=== PATIENT | male | born 2000 | race Caucasian/White ===

== ENCOUNTER 2025-04-24 14:36 | Emergency (ER) | payer OTHER, SELFPAY ==
--- NOTE | ~2025-04-24 | XR_ITS ---
EXAMINATION: XR chest 2V DATE: 04/24/2025 18:05 INDICATION: Electrical shock TECHNIQUE: Frontal and lateral views of the chest were obtained. COMPARISON: None. FINDINGS: The heart size is normal. Lungs are clear of acute processes. IMPRESSION: 1. No acute findings. Reviewed, dictated and finalized at location T. INAL SUPERINTENDENT IMPRESSION: 1. No acute findings.
--- NOTE | 2025-04-24 14:40 | ECG_ITS ---
Test Date: 2025-04-24 14:47:52 Measurements Intervals [place] Rate: 71 P: 58 IA: 135 QRS: 78 QRSD: 93 T: 71 QT: 378 QTc: 411 Interpretive Statements SINUS RHYTHM WITH SINUS ARRHYTHMIA No previous ECG available for comparison Electronically Signed On 04-24-2025 14:51:24 TILE DECORATOR by Juan C Arizmendi M.D.
[2025-04-24 14:42] VITALS: BP 113/67; PULSE 71; RESP 18; TEMP 36.9; O2SAT 98
--- NOTE | 2025-04-24 17:40 | ED_ITS ---
HPI - Chest Pain General Chief Complaint: Chest Pain <Wendy Hutchinson PA-C - Last Filed: 04/24/25 17:48> Stated Complaint: electrocuted at work from an outlet <Wendy Hutchinson PA-C - Last Filed: 04/24/25 17:48> Time Seen by Provider: 04/24/25 17:41 <TIFFANIE Harper Last Filed: 04/24/25 17:48> Focused HPI: Patient is a 24 y/o male who presents to the ED with concern for electric shock. Patient reports he was at work this morning around 9am and plugging in a 240V outlet when he accidentally touched one of the prongs and sustained a shock. States he felt a jolt/shock from his L hand, through his L arm, across his chest, down his R arm, and out his R hand. Patient reports he feels ok currently. Reports slight chest heaviness, slight soreness in L shoulder. Denies burn mills, palpitations, numbness. GENERAL: Well-appearing, well-nourished, and in no acute distress. HEAD: Normocephalic, atraumatic. CHEST: Clear to auscultation. ?No respiratory distress. HEART: Regular rate and rhythm.? NEURO: ?Alert and oriented x3. Patient screened in triage and initial orders placed.? ?Additional care and disposition to be based upon?diagnostic testing and treatment. <Wendy Hutchinson PA-C - Last Filed: 04/24/25 17:48> Source: patient <Wendy Hutchinson PA-C - Last Filed: 04/24/25 17:48> Mode of arrival: ambulatory <Wendy Hutchinson PA-C - Last Filed: 04/24/25 17:48> Limitations: no limitations <TIFFANIE Harper Last Filed: 04/24/25 17:48> Review of Systems 2 Review of Systems: As reviewed above in HPI <Roman Skinner MD - Last Filed: 04/25/25 05:56> Exam 2 Narrative: GENERAL: [Well-appearing, well-nourished, and in no acute distress.] HEAD: [Normocephalic, atraumatic.] EYES: [PERRLA and EOMI.] ENT: Nares clear, no rhinorrhea or epistaxis. Mucous membranes moist. NECK: Supple. CHEST: [Clear to auscultation. No respiratory distress.] HEART: [Regular rate and rhythm]. No murmur heard. [Normal peripheral pulses.] ABDOMEN: [Soft, nondistended], [nontender], [No rigidity or guarding] EXTREMITIES: Normal range of motion. [No edema.] SKIN: Warm, dry, no rash. NEURO: [No focal deficits]. Alert and oriented [x3.] PSYCH: [Normal mood and affect.] <Roman Skinner MD - Last Filed: 04/25/25 05:56> Course Vital Signs Vital signs: Vital Signs Temperature 36.9 C 04/24/25 14:42 Pulse Rate 71 04/24/25 14:42 Respiratory Rate 18 04/24/25 14:42 Blood Pressure 113/67 04/24/25 14:42 Pulse Oximetry 98 04/24/25 14:42 Oxygen Delivery Room Air 04/24/25 14:42 Temperature 36.6 C 04/24/25 19:33 Pulse Rate 69 04/24/25 21:53 Respiratory Rate 14 04/24/25 21:53 Blood Pressure 117/68 04/24/25 21:53 Pulse Oximetry 100 04/24/25 21:53 Oxygen Delivery Room Air 04/24/25 19:57 <Wendy Hutchinson PA-C - Last Filed: 04/24/25 17:48> Vital Signs Temperature 36.9 C 04/24/25 14:42 Pulse Rate 71 04/24/25 14:42 Respiratory Rate 18 04/24/25 14:42 Blood Pressure 113/67 04/24/25 14:42 Pulse Oximetry 98 04/24/25 14:42 Oxygen Delivery Room Air 04/24/25 14:42 Temperature 36.6 C 04/24/25 19:33 Pulse Rate 69 04/24/25 21:53 Respiratory Rate 14 04/24/25 21:53 Blood Pressure 117/68 04/24/25 21:53 Pulse Oximetry 100 04/24/25 21:53 Oxygen Delivery Room Air 04/24/25 19:57 <Roman Skinner MD - Last Filed: 04/25/25 05:56> MDM - Chest Pain MDM Narrative Medical decision making narrative: 24 y/o male who presents to the ED with concern for electric shock. Patient reports he was at work this morning around 9am and plugging in a 240V outlet when he accidentally touched one of the prongs and sustained a shock. States he felt a jolt/shock from his L hand, through his L arm, across his chest, down his R arm, and out his R hand. Patient reports he feels ok currently. Reports slight chest heaviness, slight soreness in L shoulder. Denies burn mills, palpitations, numbness. Patient observed here in the ED for several hours in all his symptoms have resolved as well as his laboratory studies EKG chest x-ray CPK and troponin all being unremarkable normal. He has no further concerns and complaints in given the low voltage of his electrocution is deemed safe for discharge home at this time with return precautions. Patient comfortable the plan safe for discharge < Roman Skinner MD - Last Filed: 04/25/25 05:56> Medical Records Data Attestation: I reviewed the patient's medical records. <Roman Skinner MD - Last Filed: 04/25/25 05:56> Lab Data Attestation: I reviewed the patient's lab results. <Roman Skinner MD - Last Filed: 04/25/25 05:56> Result diagrams: 04/24/25 17:45 04/24/25 17:45 <Wendy Hutchinson PA-C - Last Filed: 04/24/25 17:48> Labs: Lab Results 04/24/25 Range/Units 17:45 WBC 8.4 (4.5-10.0) K/mm3 RBC 5.27 (4.6-6.20) M/mm3 Hgb 15.8 (14.0-18.0) g/dL Hct 44.9 (42.0-52.0) % MCV 85.2 (80-100) fl MCH 30.0 (26-34) pg MCHC 35.2 (32-36) g/dl RDW 12.6 (11.5-14.5) % Plt Count 247 (150-375) k/mm3 MPV 9.2 (7.4-10.4) fl Immature Gran % (Auto) 0.2 (0-0.5) % Neut % (Auto) 56.4 (45.5-73.1) % Lymph % (Auto) 32.2 (18.3-44.2) % Terrell % (Auto) 9.4 H (2.6-8.5) % Eos % (Auto) 1.4 (0-4.4) % Baso % (Auto) 0.4 (0.2-1.2) % Lymph # (Auto) 2.70 (0.9-3.2) K/mm3 Terrell # (Auto) 0.8 H (0.1-0.6) K/mm3 Eos # (Auto) 0.1 (0-0.3) K/mm3 Baso # (Auto) 0.0 (0.0-0.1) K/mm3 Abs Immat Gran (auto) 0.02 (0.00-0.031) K/mm3 Absolute Neuts (auto) 4.7 (1.3-6.7) K/mm3 Absolute Nucleated RBC 0.000 (0.0-0.012) K/mm3 Nucleated RBC % 0.0 (0.0-0.2) % PT 13.8 (11.1-14.7) Seconds INR 1.0 APTT 29.6 (22.3-36.8) Seconds Sodium 138 (137-145) mmol/L Potassium 3.8 (3.4-5.0) mmol/L Chloride 105 (98-107) mmol/L Carbon Dioxide 23 (22-30) mmol/L Anion Gap 10 (4-12) mmol/L BUN 23 H (9-20) mg/dL Creatinine 1.01 (0.7-1.3) mg/dL Estim Creat Clear Calc 111 ml/min Estimated GFR > 60 (59 - ) Glucose 92 (65-110) mg/dL Calcium 9.5 (8.4-10.2) mg/dL Magnesium 2.0 (1.6-2.3) mg/dL Total Bilirubin 0.9 (0.2-1.3) mg/dL AST 21 (17-59) U/L ALT 16 (6-50) U/L Alkaline Phosphatase 59 (38-126) U/L Total Creatine Kinase 29 L (55-170) U/L Troponin I < 0.012 (0.000-0.034) ng/mL Total Protein 7.2 (6.3-8.2) g/dL Albumin 4.6 (3.5-5.1) g/dL <Wendy Hutchinson PA-C - Last Filed: 04/24/25 17:48> Lab Results 04/24/25 Range/Units 17:45 WBC 8.4 (4.5-10.0) K/mm3 RBC 5.27 (4.6-6.20) M/mm3 Hgb 15.8 (14.0-18.0) g/dL Hct 44.9 (42.0-52.0) % MCV 85.2 (80-100) fl MCH 30.0 (26-34) pg MCHC 35.2 (32-36) g/dl RDW 12.6 (11.5-14.5) % Plt Count 247 (150-375) k/mm3 MPV 9.2 (7.4-10.4) fl Immature Gran % (Auto) 0.2 (0-0.5) % Neut % (Auto) 56.4 (45.5-73.1) % Lymph % (Auto) 32.2 (18.3-44.2) % Terrell % (Auto) 9.4 H (2.6-8.5) % Eos % (Auto) 1.4 (0-4.4) % Baso % (Auto) 0.4 (0.2-1.2) % Lymph # (Auto) 2.70 (0.9-3.2) K/mm3 Terrell # (Auto) 0.8 H (0.1-0.6) K/mm3 Eos # (Auto) 0.1 (0-0.3) K/mm3 Baso # (Auto) 0.0 (0.0-0.1) K/mm3 Abs Immat Gran (auto) 0.02 (0.00-0.031) K/mm3 Absolute Neuts (auto) 4.7 (1.3-6.7) K/mm3 Absolute Nucleated RBC 0.000 (0.0-0.012) K/mm3 Nucleated RBC % 0.0 (0.0-0.2) % PT 13.8 (11.1-14.7) Seconds INR 1.0 APTT 29.6 (22.3-36.8) Seconds Sodium 138 (137-145) mmol/L Potassium 3.8 (3.4-5.0) mmol/L Chloride 105 (98-107) mmol/L Carbon Dioxide 23 (22-30) mmol/L Anion Gap 10 (4-12) mmol/L BUN 23 H (9-20) mg/dL Creatinine 1.01 (0.7-1.3) mg/dL Estim Creat Clear Calc 111 ml/min Estimated GFR > 60 (59 - ) Glucose 92 (65-110) mg/dL Calcium 9.5 (8.4-10.2) mg/dL Magnesium 2.0 (1.6-2.3) mg/dL Total Bilirubin 0.9 (0.2-1.3) mg/dL AST 21 (17-59) U/L ALT 16 (6-50) U/L Alkaline Phosphatase 59 (38-126) U/L Total Creatine Kinase 29 L (55-170) U/L Troponin I < 0.012 (0.000-0.034) ng/mL Total Protein 7.2 (6.3-8.2) g/dL Albumin 4.6 (3.5-5.1) g/dL <Roman Skinner MD - Last Filed: 04/25/25 05:56> Imaging Data Attestation: I personally reviewed and interpreted this imaging study as follows: < Roman Skinner MD - Last Filed: 04/25/25 05:56> My impression: Impressions Chest X-Ray 04/24/25 18:06 IMPRESSION: 1. No acute findings. <Roman Skinner MD - Last Filed: 04/25/25 05:56> Discharge Plan Discharge Clinical Impression: Electrocution <Wendy Hutchinson PA-C - Last Filed: 04/24/25 17:48> Patient Disposition: Home <Wendy Hutchinson PA-C - Last Filed: 04/24/25 17:48> Condition: Stable <Wendy Hutchinson PA-C - Last Filed: 04/24/25 17:48> Instructions: Antibiotic Form <TIFFANIE Harper Last Filed: 04/24/25 17:48> Additional Instructions: no sustained injuries and all your laboratory studies and imaging were normal. Tylenol and ibuprofen for any pain. Return with any emergent concerns otherwise follow-up with your doctor as needed. <Wendy Hutchinson PA-C - Last Filed: 04/24/25 17:48> Patient Language: Haitian <TIFFANIE Harper Last Filed: 04/24/25 17:48> Follow-up/Referrals: PHYSICIAN NOT ON STAFF,NONSTAFF [Non-Staff] <Wendy Hutchinson PA-C - Last Filed: 04/24/25 17:48> Time of Disposition: 21:43 <Wendy Hutchinson PA-C - Last Filed: 04/24/25 17:48> 21:43 <Roman Skinner MD - Last Filed: 04/25/25 05:56>
[2025-04-24 17:50] LABS: Hematocrit 44.9 % (42.0-52.0); Hemoglobin 15.8 g/dL (14.0-18.0); Immature Granulocyte Percent A 0.2 % (0-0.5); Lymphocytes Absolute Auto 2.70 K/mm3 (0.9-3.2); Mean Corpuscular HGB Conc 35.2 g/dl (32-36); Mean Corpuscular Hemoglobin 30.0 pg (26-34); Mean Corpuscular Volume 85.2 fl (80-100); Nucleated Red Blood Cells Absolute Auto 0.000 K/mm3 (0.0-0.012); Nucleated Red Blood Cells Perc 0.0 % (0.0-0.2); Platelet Count Result 247 k/mm3 (150-375); Red Blood Count 5.27 M/mm3 (4.6-6.20); White Blood Count 8.4 K/mm3 (4.5-10.0)
[2025-04-24 18:03] LABS: Alanine Aminotransferase 16 U/L (6-50); Albumin Level 4.6 g/dL (3.5-5.1); Alkaline Phosphatase 59 U/L (38-126); Anion Gap 10 mmol/L (4-12); Aspartate Amino Transferase 21 U/L (17-59); Bilirubin,Total 0.9 mg/dL (0.2-1.3); Blood Urea Nitrogen 23 mg/dL (9-20); Calcium 9.5 mg/dL (8.4-10.2); Carbon Dioxide 23 mmol/L (22-30); Chloride 105 mmol/L (98-107); Creatine Kinase 29 U/L (55-170); Estimated CRCL calculation 111 ml/min; Estimated Glomerular Filt Rate > 60; Glucose 92 mg/dL (65-110); INR 1.0; Magnesium 2.0 mg/dL (1.6-2.3); Potassium 3.8 mmol/L (3.4-5.0); Prothrombin Time 13.8 Seconds (11.1-14.7); Sodium 138 mmol/L (137-145); Total Protein 7.2 g/dL (6.3-8.2)
[2025-04-24 18:04] LABS: Partial Thromboplastin Time 29.6 Seconds (22.3-36.8)
[2025-04-24 18:14] LABS: Troponin I < 0.012 ng/mL (0.000-0.034)
[2025-04-24 19:33] VITALS: BP 122/65; PULSE 78; TEMP 36.6; O2SAT 97
[2025-04-24 19:49] VITALS: BP 124/78; PULSE 73; RESP 14; O2SAT 100
[2025-04-24 19:57] VITALS: O2SAT 99
--- OUTSIDE RECORDS SUMMARY | 2025-04-24 21:27 | XMS_ITS | Clinical Summary ---
Author Organization [facility] Address [address] [place] [id number] Care Team Providers Care Archives Specialist Name Role Phone Fabrizio Nixon MD Primary Care Provider + Allergies No known active allergies Medications No known medications Active Problems Problem Noted Date Diagnosed Date Tinea pedis of both feet 10/26/2021 Assessment & Plan (10/26/2021 11:07 AM CDT): - topical terbinafine for 1 wk then allow oral terbinafine to resolve any sx - discussed good foot care, changing socks twice daily, etc Onychomycosis 10/26/2021 Assessment & Plan (10/26/2021 11:07 AM CDT): - uncontrolled - start lamisil oral x 12 wks Non-recurrent acute suppurat humza otitis media of right ear without spontaneous rupture of tympanic membrane 04/16/2021 Assessment & Plan (04/16/2021 4:24 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 Viral - will treat AOM with augmentin so this will cover for possible strep - f/u prn Attention deficit hyperactivity disorder (ADHD) 12/25/2019 Assessment & Plan (02/02/2022 12:41 PM CDT): - rec holding concerta until seen by psych due to risk of worsening panic attacks Assessment & Plan (12/25/2019 9:22 AM CDT): - stable - continue meds per psych Mood disorder 12/25/2019 Assessment & Plan (01/10/2023 4:09 PM CDT): - encouraged pt to f/u with finding psych Assessment & Plan (09/08/2022 9:33 AM CDT): - stable - continue current medication - ref to psych - will provide rx for meds until pt is able to get in to see new psych Assessment & Plan (02/02/2022 12:41 PM CDT): - stable - panic attacks improved off concerta so rec continuing to hold concerta - continue abilify, cogentin and wellbutrin - f/u with psych Assessment & Plan (12/25/2019 9:22 AM CDT): - stable - continue meds per psych Annual physical exam 12/25/2019 Assessment & Plan (09/08/2022 9:32 AM CDT): - Reviewed with the patient BMI, blood pressure, diet, exercise, and encouraged healthy lifestyle choices. - Screened for high risk behaviors, diet and exercise habits, and symptoms of depression. 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), combined type 03/15/2013 Assessment & Plan (01/10/2023 4:08 PM CDT): - stable - continue current medication Assessment & Plan (09/08/2022 9:33 AM CDT): - stable - continue current medication - will rx meds until pt able to get in to see psych Depression 03/15/2013 Immunizations Immunization Administration Dates Next Due DTaP 5 Pertussis 05/06/2008, 4,03/07/2003, 003,2002 HPV, Unspecified 02/27/2019 HPV9 12/25/2019 Hep A, Adult 08/01/2022 Hep A, Unspecified 05/06/2008,01/20/2006 Hep B, Unspecified 12/20/2003,2002, 003 HiB 12/30/2003,2002,2002 IPV 05/06/2008, 3,2002, 003 Influenza, Unspecified 03/05/2024(Deferr ed: Patient Refused),04/10/2022,03/05/2021(Deferred: Patient Refused),02/27/2019 MMR 05/06/2008,08/18/2003 Meningococcal ACWY, Unspecified 02/27/2019,01/09 Pneumococcal Conjugate, Unspecified 11/0 08/2003,03/07/2003,2002, 003 Tdap 06/05/2023,01/09/2014 Varicella 05/06/2008,08/18/2003 Surgical History Surgery Date Site/Laterality Comments OTHER SURGICAL HISTORY 06/05/2011 - 06/04/2012 T&A TONSILLECTOMY/ADENOIDECTOMY 06/05/2011 - 06/04/2012 Medical History Medical History Date Comments ADHD (attention deficit hyperactivity disorder) Family History Medical History Relation Name Comments No Known Problems Father No Known Problems Mother Relation Name Status Comments Father Alive Mother Alive Social History Tobacco Use Types Packs/Day Years Used Date Smoking Tobacco: Never Tobacco Cessation:Counseling Given: Not Answered Alcohol Use Standard Drinks/Week Comments No 0 (1 standard drink = 0.6 oz pur e alcohol) AUDIT-C Answer Date Recorded Q1: How often do you have a drink containing alcohol? Never 12/04/2024 Q2: How many drinks containi ng alcohol do you have on a typical day when you are drinking? Patient does not drink Q3: How often do you have si x or more drinks on one occasion? 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 Gender Identity Not on file Sexual Orientation Not on file Last Filed Vital Signs Vital Sign Reading Time Taken Comments Blood Pressure 108/66 12/04/2024 8:23 AM CDT Pulse 87 12/04/2024 8:23 AM CDT Temperature 36.7 C (98.1 F) 12/04/2024 8:23 AM CDT Respiratory Rate 16 12/04/2024 8:23 AM CDT Oxygen Saturation 98% 12/04/2024 8:23 AM CDT Inhaled Oxygen Concentration - - Weight 84.9 kg (187 lb 1.6 oz) 12/04/2024 8:23 A M CDT Height 178.4 cm (5' 10.25) 12/04/2024 8:23 AM C DT Body Mass Index 26.66 12/04/2024 8:23 AM CDT Plan of Treatment Health Maintenance Due Date Last Done Comments Hepatitis C Screening 2002 Meningococcal B Vaccine (1 o f 2 - Standard) 2018 HPV Vaccines (3 - Male 3-dos e series) 03/18/2020 12/25/2019, 02/27/2019 Influenza Vaccine (#1) 2025 04/10/2022, 2018 Depression Screening 12/04/2025 12/04/2024, 09/08/2022, 04/16/2021, Additional history exists Regular Well Visit/Exam 18-64 12/04/2025 12/04/2024, 09/08/2022 DTaP/Tdap/Td Vaccine (8 - Td or Tdap) 06/05/2033 06/05/2023, 01/09/2014, 05/06/2008, Additional history exists Hepatitis B Screening Completed 12/20/2003 , 2002, 2002 Pneumococcal vaccine <65 Completed 004, 03/07/2003, 2002, Additional history exists Varicella Vaccines Completed 05/06/2008, 08/18/[address] [facility] CHOICE PLUS [facility] CHOICE PLUS Care Teams Archives Specialist Relationship Specialty Start Date End Date Fabrizio Nixon MD [address] [place] [id number] PCP - General Family Medicine 12/25/19
--- OUTSIDE RECORDS SUMMARY | 2025-04-24 21:28 | XMS_ITS | Patient Health Record ---
Author Organization [facility] Address [address] [place], [place] [id number] Care Team Providers Care Lapeler Name Role Phone AvivaMEGHANN enriquez Unavailable Andrew Marquis Unavailable Unavailable Reason For Referral No Information Medications Medication SIG (Take, Route, Frequency, Duration) Notes Start Date End Date Status Melatonin 1 MG Oral Tablet ORAL melatonin 1 MG Oral TabletOriginal Medicationmelatonin 1 MG Oral Tablet *Reorder from [employer] for eRx and Interaction Alerts* 5 Active 24 HR methylphenidate hydrochloride 18 MG Extended Release Oral Tablet [Concerta] ORAL 24 HR methylphenidate hydrochloride 18 MG Extended Release Oral Tablet [Concerta]Original [id number] HR methylphenidate hydrochloride 18 MG Extended Release Oral Tablet [Concerta] *Reorder from [employer] for e 5 Active methylphenidate hydrochloride 10 MG Oral Tablet [Ritalin] ORAL methylphenidate hydrochlorid e 10 MG Oral Tablet [Ritalin]Original Medicationmethylphenidate hydrochloride 10 MG Oral Tablet [Ritalin] *Reorder from [employer] for eRx and Interaction Alerts* 5 Active citalopram 10 MG Oral Tablet [Celexa] ORAL citalopram 10 MG Oral Tablet [Celexa]Original Medicationcitalopram 10 MG Oral Tablet [Celexa] *Reorder from [employer] for eRx and Interaction Alerts* 5 Active Social History Social History Additional Details Category Social Info Options Details Migrated Social History Migrated Social History History of tobacco use : , Smoking Status : Never smoked Plan Of Treatment No Information Insurance Providers Payer Name Payer Address Payer Phone Subscriber Number Group Number Insured Name Patient Relationship to Insured Coverage Start Date Coverage End Date [employer] [address] ELIUD KOVACS, [place] [phone] [id number] MK MOREIRA Child - Insured has Financial Responsibility
[2025-04-24 21:53] VITALS: BP 117/68; PULSE 69; RESP 14; O2SAT 100
== END 2025-04-24 21:56 | disposition home or self-care (01) ==
PROVIDERS: Physician Assistant; Emergency Provider Student in an Organized Health Care Education/Training Program; PCP Family Medicine
DX: T75.4XXA Electrocution, initial encounter (principal); W86.1XXA Exposure to industrial wiring, appliances and electrical machinery, initial encounter
CPT/HCPCS: 36415; 71046; 80053; 82550; 83735; 84484; 85025; 85610; 85730; 93005; 99284